=== PATIENT | male | born 1975 | race African-American/Black ===

== ENCOUNTER 2019-10-19 15:47 | Emergency (ER) | payer OTHER ==
[~2019-10-19] VITALS: Ht 175.3 cm; Wt 95.0 kg
[2019-10-19 16:27] VITALS: BP 159/96
[2019-10-19] MEDS ORDERED: FLUORESCEIN OPHTHALMIC 1 MG STRIP ONE (16:28)
[2019-10-19] MEDS ORDERED: PROPARACAINE OPHTH 0.5%, 15ML ONE (16:28)
[2019-10-19] MEDS ORDERED: FLUORESCEIN OPHTHALMIC 1 MG STRIP RIGHTEYE ONE (16:30)
[2019-10-19] MEDS ORDERED: PROPARACAINE OPHTH 0.5%, 15ML RIGHTEYE ONE (16:30)
[2019-10-19] MEDS ORDERED: ACETAMINOPHEN 500 MG TABLET PO ONE (16:30)
[2019-10-19] MEDS ORDERED: ONDANSETRON ODT 4 MG PO ONE (16:30)
[2019-10-19] MEDS ORDERED: ONDANSETRON ODT 4 MG ONE (16:32)
[2019-10-19] MEDS ORDERED: ACETAMINOPHEN 500 MG TABLET ONE (16:32)
[2019-10-19] MEDS ORDERED: LIDOCAINE-MPF 1%, 5ML ONE (16:37)
[2019-10-19] MEDS ORDERED: NEOSPORIN OINT. PKT 1 PACKET ONE (16:37)
[2019-10-19] MEDS ORDERED: LIDOCAINE 1%, 10ML INFIL ONE (17:00)
[2019-10-19] MEDS ORDERED: PLEASE ENTER ALLERGIES MC SCH (17:00)
[2019-10-19] MEDS ORDERED: CYCLOPENTOLATE OPHTH SOLN 1%, 15ML RIGHTEYE ONE (18:00)
--- NOTE | 2019-10-19 18:36 | NUR ---
Patient given discharge instructions and they have confirmed that they understand the instructions. Patient ambulatory with steady gait.
[2019-10-19] MEDS ORDERED: BACITRACIN/POLYMYXIN B OPHTH OINT 3.5GM RIGHTEYE SCH (21:00)
== END 2019-10-19 18:37 | disposition home or self-care (01) ==
LOC: ED 16:47
DX: S02.2XXA Fracture of nasal bones, initial encounter for closed fracture (principal); S01.111A Laceration without foreign body of right eyelid and periocular area, initial encounter; G89.11 Acute pain due to trauma; H20.00 Unspecified acute and subacute iridocyclitis; Y08.89XA Assault by other specified means, initial encounter; Y93.89 Activity, other specified; Y92.148 Other place in prison as the place of occurrence of the external cause; Y99.8 Other external cause status
CPT/HCPCS: 12051; 70486; 99284; J3490; Q0162